=== PATIENT | male | born 1950 | race Caucasian/White ===

== ENCOUNTER 2018-01-25 04:41 | Emergency (ER) | payer OTHER ==
[~2018-01-25] VITALS: Ht 180.3 cm; Wt 74.8 kg
[~2018-01-25 04:41] MED LIST: ACETAMINOPHEN-1 EAC1 PO; AMBIEN 10 MG TA10 MG PO; AMITRIPTYLINE H10 M3 PO; BENTYL20 MG PO; CELEXA40 MG PO; CIPROFLOXACIN500 M1 PO; DILAUDID2 M1 PO; FLAGYL500 MG PO; NOHOMEMEDICATIONS; NORCO 5-325 TA1 EACH PO; PERCOCET 5-3251 EACH PO; PHENERGAN 25 MG25 M1 PO; PREDNISONE 10 M10 M1 PO; PREDNISONE 10 M10 MG PO; PREDNISONE 20 M20 MG PO; SENNA-DOCUSATE1 EACH PO; SULFAZINE EC500 MG PO; UNKNOWN MEDICATION PO; VICODIN 5-5001 EACH PO; ZOFRAN4 MG PO
[2018-01-25 05:53] LABS: HEMATOCRIT 36.1 % (42.0-52.0); HEMOGLOBIN 12.5 gm/dL (14.0-18.0); MCH 32.2 pg (26.0-34.0); MCHC 34.7 g/dL (28.0-37.0); MCV 92.8 fL (80.0-100.0); RBC 3.89 mil/uL (4.50-6.00); WBC 10.3 thou/uL (4.0-11.0)
[2018-01-25 06:00] LABS: ANION GAP 10 mmol/L (7-16); BUN 31 mg/dL (7-18); CALCIUM 8.3 mg/dL (8.5-10.1); CHLORIDE 108 mmol/L (98-107); CO2 22 mmol/L (21-32); CREATININE 1.9 mg/dL (0.7-1.3); GLUCOSE 97 mg/dL (74-106); POTASSIUM 3.6 mmol/L (3.5-5.1); SODIUM 140 mmol/L (136-145)
[2018-01-25 06:06] LABS: ALBUMIN 2.7 g/dL (3.4-5.0); DIRECT BILIRUBIN < 0.1 mg/dL (<0.1-0.3); LIPASE 403 U/L (73-393); SGPT 36 U/L (30-65); TOTAL BILIRUBIN 0.3 mg/dL (<0.1-1.0)
[2018-01-25 06:09] LABS: SGOT 21 U/L (15-37)
[2018-01-25] MEDS ORDERED: PREDNISONE 20 M20 MG PO (06:23)
== END 2018-01-25 06:38 | disposition home or self-care (01) ==
LOC: ER 04:41
PROVIDERS: Emergency Medicine
DX: R10.13 Epigastric pain (principal); R10.33 Periumbilical pain; F17.210 Nicotine dependence, cigarettes, uncomplicated; F31.9 Bipolar disorder, unspecified; F90.9 Attention-deficit hyperactivity disorder, unspecified type; K50.90 Crohn's disease, unspecified, without complications; Z90.49 Acquired absence of other specified parts of digestive tract; Z88.8 Allergy status to other drugs, medicaments and biological substances; Z88.0 Allergy status to penicillin

== ENCOUNTER 2018-05-25 22:28 | Emergency (ER) | payer OTHER ==
[~2018-05-25] VITALS: Ht 180.3 cm; Wt 77.1 kg
[2018-05-25] MEDS ORDERED: RISPERDAL 3 MG T3 M1 PO (22:34)
[2018-05-25 23:11] LABS: ABSOLUTE NEUTROPHILS 8.2 thou/uL (1.4-8.2); BASOPHILS 0.8 % (0.0-2.0); EOSINOPHILS 1.2 % (0.0-3.0); HEMATOCRIT 41.2 % (42.0-52.0); HEMOGLOBIN 14.1 gm/dL (14.0-18.0); LYMPHOCYTES 16.2 % (24.0-44.0); MCH 31.3 pg (26.0-34.0); MCHC 34.4 g/dL (28.0-37.0); MCV 91.2 fL (80.0-100.0); MONOCYTES 8.6 % (1.0-8.0); PLATELET COUNT 254 thou/uL (150-400); POLYS 73.2 % (36.0-66.0); RBC 4.51 mil/uL (4.50-6.00); RDW 14.1 % (10.5-14.5); WBC 11.2 thou/uL (4.0-11.0)
[2018-05-25 23:15] LABS: URINE BILIRUBIN NEGATIVE (Negative); URINE BLOOD NEGATIVE (Negative); URINE CLARITY CLEAR; URINE COLOR YELLOW; URINE GLUCOSE-RANDOM* NEGATIVE (Negative); URINE KETONES NEGATIVE (Negative); URINE LEUKOCYTES-REFLEX NEGATIVE (Negative); URINE NITRITE-REFLEX NEGATIVE (Negative); URINE PROTEIN (DIPSTICK) 1+ (Negative); URINE SPECIFIC GRAVITY 1.025 (1.005-1.035); URINE UROBILINOGEN 0.2 E.U./dl (0.2-1.0)
[2018-05-25 23:16] LABS: ANION GAP 12 mmol/L (7-16); BUN 38 mg/dL (7-18); CALCIUM 8.5 mg/dL (8.5-10.1); CHLORIDE 103 mmol/L (98-107); CO2 23 mmol/L (21-32); CREATININE 2.3 mg/dL (0.7-1.3); GLUCOSE 125 mg/dL (74-106); SODIUM 138 mmol/L (136-145)
[2018-05-25 23:18] LABS: BACTERIA-REFLEX None Seen /HPF (None Seen); CASTS None Seen /LPF (None Seen); CRYSTALS None Seen /LPF (None Seen); MUCUS 0-3 Light strn/LPF (None Seen); SQUAMOUS None Seen /LPF (0-3); URINE RBC None Seen /HPF (0-2); URINE WBC-REFLEX None Seen /HPF (0-5)
[2018-05-25 23:21] LABS: POTASSIUM 2.5 mmol/L (3.5-5.1)
[2018-05-25 23:24] LABS: ALBUMIN 3.5 g/dL (3.4-5.0); LIPASE 378 U/L (73-393); SGOT 24 U/L (15-37); SGPT 35 U/L (30-65); TOTAL BILIRUBIN 0.4 mg/dL (<0.1-1.0); TOTAL PROTEIN 6.8 g/dL (6.4-8.2); TROPONIN-I <0.06 ng/mL (<0.06)
[2018-05-25] MEDS ORDERED: POTASSIUM20 PO (23:38)
[2018-05-25] MEDS ORDERED: ZOFRAN ODT4 MG DISSOLVE (23:38)
[2018-05-25] MEDS ORDERED: ACETAMINOPHEN-1 EAC1 PO (23:38)
[2018-05-25 23:51] VITALS: BP 111/84
--- NOTE | 2018-05-26 11:04 | EKG ---
[place] [address] [facility] [place] [address] ELECTROCARDIOGRAM REPORT Name: JHOAN LOCKE [facility] [id number] ������������������ Admission: 05/25/18 ������������������ Attend Phys: Discharge: 05/25/18 ������������������ Date of : 54 Report #: [id number] ����������������������������������������������������������������� [id number] THIS REPORT FOR: //name// [facility] ED Test Date: 2018-05-25 Test Time: 23:37:09 Pat Name: JHOAN LOCKE Department: Room: Gender: Assistant Designer: rachelle : 1950 Requested By: James Hill Order Number: [id number] MD: Bryson Encarnacion Measurements Intervals [place] Rate: 59 P: 82 MA: 185 QRS: 67 QRSD: 99 T: 62 QT: 400 QTc: 397 Interpretive Statements Sinus bradycardia Otherwise no significant abnormality Compared to ECG 10/23/2011 18:50:57 No significant change was found Electronically Signed On 05-26-2018 11:03:49 [employer]OUTER TEND[employer] by Bryson Encarnacion [email or web address] ��������������������������������������������� <ELECTRONICALLY SIGNED> ���������������������������������������� By: Bryson Encarnacion MD, [facility] ��������������������������������������������� 05/26/18 [id number] Bryson Encarnacion MD, FACC /EPI
== END 2018-05-25 23:58 | disposition home or self-care (01) ==
LOC: ER 22:28
PROVIDERS: Emergency Medicine
DX: K50.90 Crohn's disease, unspecified, without complications (principal); N18.9 Chronic kidney disease, unspecified; E87.6 Hypokalemia; F90.9 Attention-deficit hyperactivity disorder, unspecified type; F31.9 Bipolar disorder, unspecified; F17.210 Nicotine dependence, cigarettes, uncomplicated; Z88.0 Allergy status to penicillin; Z88.6 Allergy status to analgesic agent; Z88.8 Allergy status to other drugs, medicaments and biological substances; Z90.49 Acquired absence of other specified parts of digestive tract

== ENCOUNTER 2018-09-22 23:02 | Emergency (ER) | payer OTHER ==
[~2018-09-22] VITALS: Ht 180.3 cm; Wt 49.9 kg
[~2018-09-22 23:02] MED LIST changes: +POTASSIUM20 PO; +RISPERDAL 3 MG T3 M1 PO; +ZOFRAN ODT4 MG DISSOLVE
[2018-09-23] MEDS ORDERED: POTASSIUM20 PO (00:26)
[2018-09-23 00:49] LABS: URINE BILIRUBIN NEGATIVE (Negative); URINE BLOOD NEGATIVE (Negative); URINE CLARITY CLEAR; URINE COLOR YELLOW; URINE GLUCOSE-RANDOM* NEGATIVE (Negative); URINE KETONES NEGATIVE (Negative); URINE LEUKOCYTES-REFLEX NEGATIVE (Negative); URINE NITRITE-REFLEX NEGATIVE (Negative); URINE PROTEIN (DIPSTICK) TRACE (Negative); URINE UROBILINOGEN 0.2 E.U./dl (0.2-1.0)
[2018-09-23 01:06] LABS: ABSOLUTE NEUTROPHILS 8.9 thou/uL (1.4-8.2); BASOPHILS 0.6 % (0.0-2.0); EOSINOPHILS 1.1 % (0.0-3.0); HEMATOCRIT 38.9 % (42.0-52.0); HEMOGLOBIN 13.1 gm/dL (14.0-18.0); LYMPHOCYTES 12.8 % (24.0-44.0); MCH 31.6 pg (26.0-34.0); MCHC 33.5 g/dL (28.0-37.0); MCV 94.2 fL (80.0-100.0); MONOCYTES 7.3 % (1.0-8.0); PLATELET COUNT 236 thou/uL (150-400); POLYS 78.2 % (36.0-66.0); RBC 4.13 mil/uL (4.50-6.00); RDW 13.5 % (10.5-14.5); WBC 11.4 thou/uL (4.0-11.0)
[2018-09-23 01:19] LABS: ALBUMIN 2.9 g/dL (3.4-5.0); CALCIUM 8.2 mg/dL (8.5-10.1); TOTAL BILIRUBIN 0.2 mg/dL (<0.1-1.0); TOTAL PROTEIN 6.3 g/dL (6.4-8.2)
[2018-09-23 01:30] LABS: POTASSIUM 2.5 mmol/L (3.5-5.1)
[2018-09-23] MEDS ORDERED: KLOR-CON 1010 MEQ PO (03:14)
[2018-09-23 03:26] VITALS: BP 108/58
== END 2018-09-23 03:32 | disposition home or self-care (01) ==
LOC: ER 23:02
PROVIDERS: Emergency Medicine
DX: E87.6 Hypokalemia (principal); R10.13 Epigastric pain; F17.210 Nicotine dependence, cigarettes, uncomplicated; K50.90 Crohn's disease, unspecified, without complications; F31.9 Bipolar disorder, unspecified; F90.9 Attention-deficit hyperactivity disorder, unspecified type; Z88.8 Allergy status to other drugs, medicaments and biological substances; Z88.0 Allergy status to penicillin; Z90.49 Acquired absence of other specified parts of digestive tract